=== PATIENT | female | born 1960 | race Two or more races ===

== ENCOUNTER 2019-03-11 11:50 | Emergency (ER) | payer SELFPAY ==
[~2019-03-11] VITALS: Ht 157.5 cm; Wt 68.0 kg
[2019-03-11 12:02] VITALS: BP 157/83
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
[2019-03-11] MEDS ORDERED: IBU800 MG PO (12:14)
[2019-03-11] MEDS ORDERED: LIDODERM700 M1 TOPIC (12:14)
[2019-03-11] MEDS ORDERED: ROBAXIN-500MG ORAL (12:14)
[2019-03-11 12:22] VITALS: BP 157/83
== END 2019-03-11 12:23 | disposition home or self-care (01) ==
LOC: EMR 12:15
DX: S16.1XXA Strain of muscle, fascia and tendon at neck level, initial encounter (principal); S39.012A Strain of muscle, fascia and tendon of lower back, initial encounter; V43.92XA Unspecified car occupant injured in collision with other type car in traffic accident, initial encounter; Y92.411 Interstate highway as the place of occurrence of the external cause
CPT/HCPCS: 99282